=== PATIENT | female | born 1980 | race African-American/Black ===

== ENCOUNTER 2019-02-10 02:23 | Inpatient (IN) | payer MEDICAID ==
[~2019-02-10] VITALS: Ht 162.6 cm; Wt 64.0 kg
[~2019-02-10 02:23] MED LIST: IRON-15 PO; PRENATAL ONE T1 EACH PO
[2019-02-10] MEDS ORDERED: DEXT 5%/LACTATED RINGERS 1,000 ML IV SCH (03:56)
[2019-02-10] MEDS ORDERED: DEXT 5%/LR + PITOCIN 20UNITS/L 1,000 ML IV SCH ×2 (03:56→10:39)
[2019-02-10] MEDS ORDERED: LACTATED RINGERS 1,000 ML IV SCH (03:56)
[2019-02-10] MEDS ORDERED: METHYLERGONOVINE MALEATE 0.2 MG/ML IM PRN (04:00)
[2019-02-10] MEDS ORDERED: BUTORPHANOL TARTRATE 2 MG/ML VIAL IV PRN (04:00)
[2019-02-10] MEDS ORDERED: NALOXONE HCL 0.4 MG/ML 1ML VIAL IM PRN (04:00)
[2019-02-10] MEDS ORDERED: LIDOCAINE HCL 1% 20ML VIAL (Pyxis) INJ INFIL PRN (04:00)
[2019-02-10] MEDS ORDERED: MISOPROSTOL 100MCG TABLET VG PRN (04:00)
[2019-02-10] MEDS ORDERED: CARBOPROST TROMETHAMINE 250 MCG/ML AMPUL IM PRN (04:00)
[2019-02-10] MEDS ORDERED: AMPICILLIN 2,000 MG in SODIUM CHLORIDE 0.9% 100 ML IV SCH (04:30)
[2019-02-10 05:15] LABS: CLARITY URINE CLEAR (CLEAR); COLOR URINE YELLOW (YELLOW); KETONES URINE NEGATIVE (NEGATIVE); LEUKOCYTE ESTERASE URINE TRACE (NEGATIVE); NITRITE URINE NEGATIVE (NEGATIVE); OCCULT BLOOD URINE 1+ (NEGATIVE); PROTEIN URINE NEGATIVE (NEGATIVE); SPECIFIC GRAVITY URINE 1.011 (1.005-1.030); UROBILINOGEN URINE 0.2 E.U./dL (0.2-1.0)
[2019-02-10 05:19] LABS: BASOPHILS % 0.3 % (0.0-2.0); HEMOGLOBIN. 12.1 g/dL (12.0-16.0); LYMPHOCYTES % 31.8 % (20.0-50.0); MEAN CORPUSCULAR HEMOGLOBIN 32.9 pg (28.0-32.0); MEAN PLATELET VOLUME 9.4 fl (7.4-10.4); NEUTROPHILS % 59.9 % (40.0-76.0); PLATELET 201 x1000/uL (130-400); RED BLOOD CELL COUNT 3.68 mill/uL (4.2-5.4)
[2019-02-10 05:21] LABS: INR 0.9; PARTIAL THROMBOPLASTIN TIME 25.5 sec (23.4-31.0); PROTHROMBIN TIME 9.3 sec (9.6-11.0)
[2019-02-10 05:31] LABS: *BENZODIAZEPINES SCREEN URINE NEGATIVE (NEGATIVE); *COCAINE SCREEN URINE NEGATIVE (NEGATIVE); METHADONE URINE SCREEN NEGATIVE (NEGATIVE); OPIATES URINE SCREEN NEGATIVE (NEGATIVE)
[2019-02-10 05:32] LABS: *BARBITURATES SCREEN URINE NEGATIVE (NEGATIVE); CANNABINOID URINE SCREEN NEGATIVE (NEGATIVE); PHENCYCLIDINE URINE SCREEN NEGATIVE (NEGATIVE)
[2019-02-10 05:34] LABS: *AMPHETAMINES SCREEN URINE NEGATIVE (NEGATIVE)
[2019-02-10] MEDS ORDERED: CLINDAMYCIN 900 MG in DEXTROSE 5% WATER 50 ML IV SCH (06:00)
[2019-02-10] MEDS ORDERED: PRENATAL (07:36)
[2019-02-10] MEDS ORDERED: FOLIC ACID (07:36)
[2019-02-10] MEDS ORDERED: AMPICILLIN 1,000 MG in SODIUM CHLORIDE 0.9% 50 ML IV SCH (10:00)
[2019-02-10] MEDS ORDERED: RHO(D) IMMUNE GLOBULIN 300 MCG/SYR IM PRN (10:45)
[2019-02-10] MEDS ORDERED: IBUPROFEN 400MG TABLET PO PRN (10:45)
[2019-02-10] MEDS ORDERED: BENZOCAINE/LANOLIN/ALOE VERA SPRAY TOP PRN (10:45)
[2019-02-10] MEDS ORDERED: IBUPROFEN 800MG TABLET PO PRN (10:45)
[2019-02-10 12:00] VITALS: BP 109/56
[2019-02-10 12:30] VITALS: BP 113/62
[2019-02-10 14:54] LABS: HEPATITIS B SURFACE ANTIGEN NEGATIVE
[2019-02-10 15:58] VITALS: BP 93/60
[2019-02-10 22:00] VITALS: BP 101/54
[2019-02-11 04:20] VITALS: BP 99/57
[2019-02-11 07:30] VITALS: BP 108/66
[2019-02-11 09:48] LABS: BASOPHILS % 0.4 % (0.0-2.0); EOSINOPHILS % 1.1 % (0.0-5.0); HEMATOCRIT. 30.7 % (36.0-48.0); HEMOGLOBIN. 10.4 g/dL (12.0-16.0); MEAN CORPUSCULAR HEMOGLOBIN 33.2 pg (28.0-32.0); MEAN CORPUSCULAR VOLUME 97.8 fL (81.0-99.0); MEAN PLATELET VOLUME 8.2 fl (7.4-10.4); MONOCYTES % 6.9 % (2.0-8.0); NEUTROPHILS % 74.6 % (40.0-76.0); PLATELET 190 x1000/uL (130-400); RED BLOOD CELL COUNT 3.14 mill/uL (4.2-5.4); RED CELL DISTRIBUTION WIDTH 14.2 % (11.6-14.6)
[2019-02-11 16:00] VITALS: BP 105/62
[2019-02-11 22:00] VITALS: BP 113/72
[2019-02-12 07:55] VITALS: BP 122/81
== END 2019-02-12 10:25 | disposition home or self-care (01) | DRG 560 ==
LOC: 8 EST LDRP 02:23 → OBSVTOIN 02:23 → 8EST 12:08
PROVIDERS: ADMIT Obstetrics & Gynecology; ATTEND Obstetrics & Gynecology
PROC: 10E0XZZ Delivery of Products of Conception, External Approach (ICD-10-PCS; principal; 2019-02-10)
PROC: 0KQM0ZZ Repair Perineum Muscle, Open Approach (ICD-10-PCS; 2019-02-10)
DX: O70.1 Second degree perineal laceration during delivery (principal); O99.03 Anemia complicating the puerperium; Z37.0 Single live birth; Z3A.39 39 weeks gestation of pregnancy; Z83.3 Family history of diabetes mellitus; Z82.49 Family history of ischemic heart disease and other diseases of the circulatory system; Z88.0 Allergy status to penicillin; Z88.6 Allergy status to analgesic agent
CPT/HCPCS: 36415; 76805; 76818; 80305; 86592; 86703; 86762; 86850; 86900; 87340; 99281; J0290; J2590; J3490; J7050; J7060; J7120; J7121